=== PATIENT | female | born 1985 | race Caucasian/White ===

== ENCOUNTER 2017-08-05 11:41 | Emergency (ER) | payer OTHER ==
[2017-08-05 12:12] VITALS: BP 133/79
--- NOTE | 2017-08-05 12:54 | UC ---
Upper Extremity HPI - HPI Summary HPI Summary: 32 y/o with no PMh presents with co L shoulder pain radiating down arm into forearm. no numbness, tingling, no weakness. No recent trauma or history of trauma in the past. Denies chest pain, SOB, urinary/ bowel complaints or other symptoms. - History of Current Complaint Chief Complaint: UCGeneralIllness Stated Complaint: NECK/LFT WRIST,SHOULDER PAIN Time Seen by Provider: 08/05/17 12:29 Hx Obtained From: Patient, Family/[employer] - male friend Hx Last Menstrual Period: 07/14/17 ?: No - urine preg neg Onset/Duration: Gradual Onset, Lasting Days Severity Initially: Moderate Severity Currently: Moderate Alleviating Factor(s): Elevation Associated Signs And Symptoms: Positive: Negative. Negative: Numbness/Tingling - Allergies/Home Medications Allergies/Adverse Reactions: Allergies Allergy/AdvReac Type Severity Reaction Status Date / Time No Known Allergies Allergy Verified 08/05/17 12:01 Home Medications: Home Medications Iron W/ Vitamins [Sondra-Plus H] 1 cap DAILY 08/05/17 [History Confirmed 08/05/17] Vitamin [Calna] 1 tab BEDTIME 08/05/17 [History Confirmed 08/05/17] PMH/Surg Hx/FS Hx/Imm Hx Previously Healthy: Yes - Surgical History Surgical History: Yes Surgery Procedure, Year, and Place: LEFT fallopian tube - Social History Alcohol Use: Occasionally Substance Use Type: None Smoking Status (MU): Never Smoked Tobacco - Immunization History Most Recent Influenza Vaccination: 2017 Review of Systems Musculoskeletal: Arthralgia Is Patient Immunocompromised?: No All Other Systems Reviewed And Are Negative: Yes Physical Exam Triage Information Reviewed: Yes Appearance: Well-Appearing, No Pain Distress, Well-Nourished Vital Signs: Initial Vital Signs Temp 97.9 F 08/05/17 12:03 Pulse 70 08/05/17 12:03 Resp 20 08/05/17 12:03 BP 133/79 08/05/17 12:03 Pulse Ox 99 08/05/17 12:03 Vital Signs Reviewed: Yes Eye Exam: Normal Neck exam: Normal Neck: Positive: Supple, Nontender, No Lymphadenopathy. Negative: Nuchal Rigidity, Enlarged Nodes @ - anter/ post cervical Musculoskeletal: Positive: Strength Intact, ROM Intact, No Edema - L UE ROM flex 150 b/l, abd 110 b/l,, Other: - neers, speed, bear hug, belly testing negative, sensation grossly intact, home health provider strength = b/l, cap refill <2secs L hand. tenderness over trap near origin L side, no pain right side back to palption Neurological Exam: Normal Neurological: Positive: Alert, Muscle Tone Normal - strength 5/5 b/l UEs with wrist, elbow, shoulder. Psychological Exam: Normal Skin Exam: Normal Upper Extremity Course/Dx - Course Course Of Treatment: treated for muscle spasm, flexeril at night to help with symptoms, naproxen BID, increase fluid intake - Differential Dx/Diagnosis Differential Diagnosis/HQI/PQRI: Bursitis, Contusion, Hematoma, Strain, Sprain Provider Diagnoses: muscle spasm Discharge - Discharge Plan Condition: Good Disposition: HOME Prescriptions: Cyclobenzaprine TAB* [Flexeril 10 MG TAB*] 10 mg PO BID PRN #20 tab PRN Reason: muscle spasm Naproxen [Naproxen 500 mg] 500 mg PO BID #20 tab Patient Education Materials: Muscle Spasm (ED) Forms: *Work Release Referrals: Jaqui Ellis [Primary Care Provider] - Additional Instructions: - increase fluid intake - Rest, - heat over affected area - Follow up with primary physician if no improvement within 2-3 days or for numbness, tingling - naproxen twice daily - Flexeril as needed at night for muscle spasms
== END 2017-08-05 13:08 | disposition home or self-care (01) ==
LOC: UCCORT 11:41
DX: M62.838 Other muscle spasm (principal); M25.512 Pain in left shoulder; Z32.02 Encounter for pregnancy test, result negative
CPT/HCPCS: 84702; 99212; G0463

== ENCOUNTER 2019-07-12 13:58 | Emergency (ER) | payer BC, OTHER ==
[2019-07-12 14:45] VITALS: BP 123/69
--- NOTE | 2019-07-12 16:09 | UC ---
Minor Trauma HPI - HPI Summary HPI Summary: 34-year-old female presents with complaints of nasal pain and swelling. States on 07/10/2019 she tripped and fell forward striking her face on a wall. States she had a nosebleed immediately after the injury that was controlled with some direct pressure. No loss of consciousness. States she has noticed some mild nasal congestion since that time and has a mild headache. Denies fever, chills , visual disturbances, photophobia, dizziness, lightheadedness, neck pain, jaw pain, trismus, loose or broken teeth, weakness, numbness, tingling of the extremities, nausea, or vomiting. - History of Current Complaint Chief Complaint: UCTrauma Stated Complaint: NOSE INJURY Time Seen by Provider: 07/12/19 15:34 Hx Obtained From: Patient Hx Last Menstrual Period: 07/05/19 Pain Intensity: 3 - Allergies/Home Medications Allergies/Adverse Reactions: Allergies Allergy/AdvReac Type Severity Reaction Status Date / Time No Known Allergies Allergy Verified 07/12/19 14:45 Home Medications: Home Medications Levothyroxine Sodium 75 mcg PO DAILY 07/12/19 [History Confirmed 07/12/19] Topiramate [Topamax] 50 mg PO DAILY 07/12/19 [History Confirmed 07/12/19] PMH/Surg Hx/FS Hx/Imm Hx Endocrine History: Thyroid Disease Neurological History: Migraine - Surgical History Surgical History: Yes Surgery Procedure, Year, and Place: LEFT fallopian tube - Family History Known Family History: Positive: Non-Contributory - Social History Occupation: Employed Full-time Lives: Alone Alcohol Use: Occasionally Substance Use Type: None Smoking Status (MU): Never Smoked Tobacco - Immunization History Most Recent Influenza Vaccination: 2017 Review of Systems All Other Systems Reviewed And Are Negative: Yes Constitutional: Negative: Fever, Chills Eyes: Negative: Blurred Vision, Diplopia, Drainage, Eye Redness, Photophobia ENT: Positive: Epistaxis. Negative: Sore Throat, Ear Ache, Nasal Discharge, Sinus Congestion, Sinus Pain/Tenderness Respiratory: Positive: Negative Cardiovascular: Positive: Negative Gastrointestinal: Positive: Negative Genitourinary: Positive: Negative Musculoskeletal: Positive: Negative Neurological: Negative: Headache, Weakness, Paresthesia, Numbness, Other - LOC Is Patient Immunocompromised?: No Physical Exam - Summary Physical Exam Summary: GENERAL APPEARANCE: Well developed, well nourished, alert and cooperative, and appears to be in no acute distress. HEAD: Normocephalic. EYES: Conjunctiva clear. No drainage. PERRL, EOM intact. Vision is grossly intact. EARS: External auditory canals and tympanic membranes clear, hearing grossly intact. NOSE: Tenderness with ecchymosis and mild-moderate edema across the bridge of the nose without gross deformity. No crepitus, epistaxis, drainage, or septal hematoma. THROAT: Pharynx normal. No tonsilar inflammation, swelling, exudate, or lesions. Uvula midline. Oral cavity normal. Teeth and gingiva in good general condition. No TMJ tenderness. NECK: Neck supple, non-tender without lymphadenopathy. CARDIAC: Normal S1 and S2. No S3, S4 or murmurs. Rhythm is regular. There is no peripheral edema, cyanosis or pallor. Extremities are warm and well perfused. Capillary refill is less than 2 seconds. Peripheral pulses intact. LUNGS: Clear to auscultation without rales, rhonchi, wheezing or diminished breath sounds. ABDOMEN: Positive bowel sounds. Soft, nondistended, nontender. No guarding or rebound. No masses or hepatosplenomegally. MUSKULOSKELETAL: ROM intact to all extremities. No joint erythema or tenderness. Normal muscular development. Normal gait. NEUROLOGICAL: CN II-XII intact. Strength and sensation symmetric and intact throughout. Reflexes 2+ throughout. Cerebellar testing normal. SKIN: Skin normal color, texture and turgor with no lesions or eruptions. Triage Information Reviewed: Yes Vital Signs: Initial Vital Signs Temp 98.8 F 07/12/19 14:40 Pulse 63 07/12/19 14:40 Resp 16 07/12/19 14:40 BP 123/69 07/12/19 14:40 Pulse Ox 100 07/12/19 14:40 Vital Signs Reviewed: Yes Diagnostics - Radiology No standard instances Radiology Interpretation Completed By: Radiologist Summary of Radiographic Findings: Order Information: CT MAXILLOFACIAL W/O. HISTORY: facial injury s/p fall. COMPARISONS: None. TECHNIQUE: Multiple contiguous axial CT scans were obtained of the face without intravenous contrast , with coronal and sagittal multiplanar reformations. FINDINGS: BONES: There is a slightly angulated transverse fracture of the nasal bones without displacement. The orbital rims are intact. The zygomatic arches are intact. The pterygoid plates are intact. ORBITS: The globes are round. The optic nerves are symmetric. The extraocular musculature is normal. There is no post septal or intraconal inflammatory change. There is no retrobulbar hematoma. PARANASAL SINUSES: The nasal deviated to the right. The paranasal sinuses are clear. BRAIN AND SOFT TISSUE: Unremarkable. OTHER: None. IMPRESSION: SLIGHTLY ANGULATED NONDISPLACED FRACTURE OF THE NASAL BONES. Minor Trauma Course/Dx - Course Course Of Treatment: 34-year-old female presents with complaints of nasal pain and swelling. States on 07/10/2019 she tripped and fell forward striking her face on a wall. States she had a nosebleed immediately after the injury that was controlled with some direct pressure. No loss of consciousness. States she has noticed some mild nasal congestion since that time and has a mild headache. Denies fever, chills , visual disturbances, photophobia, dizziness, lightheadedness, neck pain, jaw pain, trismus, loose or broken teeth, weakness, numbness, tingling of the extremities, nausea, or vomiting. Afebrile. Vital signs stable. Patient's exam was remarkable for tenderness with ecchymosis and mild-moderate edema across the bridge of the nose without gross deformity. No crepitus, epistaxis, drainage, or septal hematoma. A maxillofacial CT was obtained which showed a slightly angulated transverse fracture of the nasal bones without displacement. Results were reviewed with the patient. Recommending continued conservative treatment for a nasal fracture. She is to follow-up with ENT in 5-7 days for further evaluation and treatment. Anticipatory guidance and warning symptoms were reviewed with the patient. Verbalizes understanding and agrees with plan of care. - Differential Dx/Diagnosis Differential Diagnosis/HQI/PQRI: Contusion(s), Fracture, Hematoma(s) Provider Diagnosis: Closed nondisplaced fracture of nasal bone Discharge ED - Sign-Out/Discharge Documenting (check all that apply): Patient Departure All imaging exams completed and their final reports reviewed: Yes - Discharge Plan Condition: Stable Disposition: HOME Patient Education Materials: Nasal Fracture (ED) Referrals: Jaqui Ellis [Primary Care Provider] - Venancio Barnes MD [Medical Doctor] - 5 Days (You may also call [phone] to schedule an appointment in the [facility] office.) Additional Instructions: The CT scan performed in the clinic today showed a slightly angulated transverse fracture of the nasal bones without displacement. Continue to apply ice for 15-20 minutes across the bridge of the nose at least 4 times a day to help reduce swelling. Use acetaminophen (Tylenol) or ibuprofen (Advil, Motrin) according to directions as needed for any pain. Follow-up with the ears, nose, and throat specialist in 5-7 days for further evaluation and treatment. Seek immediate medical attention in the emergency room if you develop a fever greater than 100.5 F, have a severe headache that is not managed with over-the- counter pain medication, any visual disturbances, dizziness, confusion, difficulty or slurred speech, weakness, numbness, or tingling of the arms or legs, or any worsening of symptoms. - Billing Disposition and Condition Condition: STABLE Disposition: Home
== END 2019-07-12 16:28 | disposition home or self-care (01) ==
LOC: UCCORT 13:58
DX: S02.2XXA Fracture of nasal bones, initial encounter for closed fracture (principal); W01.198A Fall on same level from slipping, tripping and stumbling with subsequent striking against other object, initial encounter; Y92.9 Unspecified place or not applicable; E07.9 Disorder of thyroid, unspecified; G43.909 Migraine, unspecified, not intractable, without status migrainosus
CPT/HCPCS: 70486; 99211; G0463